=== PATIENT | male | born 1960 | race Caucasian/White ===

== ENCOUNTER → 2020-06-11 14:25 | Outpatient (BNVA) | payer OTHER, SELFPAY | PROVIDERS: Family Provider Internal Medicine; PCP Internal Medicine; Referring Provider Family Medicine; Visit Provider Dermatology | DX: L82.0 Inflamed seborrheic keratosis (principal); D22.9 Melanocytic nevi, unspecified; L82.1 Other seborrheic keratosis; D48.9 Neoplasm of uncertain behavior, unspecified; L21.9 Seborrheic dermatitis, unspecified | CPT/HCPCS: 11102; 17000; 88304; 88305; 99203; 99204 ==

== ENCOUNTER 2022-09-23 07:57 | Outpatient (CLI) | payer MEDICARE, OTHER, MEDICAID, SELFPAY ==
[2022-09-23 08:48] LABS: Basophils # 0.1 10^3/uL (0.0-0.1); Basophils % 1.4 %; Eosinophils # 0.1 10^3/uL (0.0-0.8); Eosinophils % 2.1 %; Hematocrit 32.7 % (42.0-52.0); Hemoglobin 9.5 g/dL (11.7-16.6); Lymphocytes # 1.2 10^3/uL (0.8-4.8); Lymphocytes % 23.8 %; Mean Corpuscular HGB Conc 29.1 g/dL (30.0-36.0); Mean Corpuscular Hemoglobin 24.6 pg (28.0-34.0); Mean Corpuscular Volume 84.7 fl (80-94); Mean Platelet Volume 10.3 fL (7.4-10.4); Monocytes # 0.7 10^3/uL (0.2-0.9); Monocytes % 13.6 %; Neutrophils # 2.85 10^3/uL (1.8-7.7); Neutrophils % 58.9 %; Nucleated Red Blood Cells % 0 %; Platelet Count 351 10^3/cmm (130-400); Red Blood Count 3.86 10^6/uL (4.1-5.3); Red Cell Distribution Width 14.6 % (12.1-15.1); White Blood Count 4.8 10^3/uL (4.0-10.0)
== END 2022-09-23 07:58 | disposition home or self-care (01) ==
LOC: LAB 07:58
PROVIDERS: Family Provider Internal Medicine; PCP Internal Medicine; Visit Provider Family Medicine
DX: I10 Essential (primary) hypertension (principal)
CPT/HCPCS: 85025

== ENCOUNTER 2023-02-26 21:05 | Emergency (ER) | payer MEDICARE, MEDICAID, SELFPAY ==
[2023-02-26 21:15] VITALS: BP 154/79; PULSE 86; RESP 16; TEMP 36.6; O2SAT 95; BMI 32.5
--- NOTE | 2023-02-26 21:43 | CTR_ITS ---
PROCEDURE INFORMATION: Exam: CT Head Without Contrast Exam date and time: 02/26/2023 10:05 PM Age: 62 years old Clinical indication: Injury or trauma; Fall; Blunt trauma (contusions or hematomas); Consciousness not specified; Patient HX: HX CVA; Additional info: Fall head injury TECHNIQUE: Imaging protocol: Computed tomography of the head without contrast. Radiation optimization: All CT scans at this facility use at least one of these dose optimization techniques: automated exposure control; mA and/or kV adjustment per patient size (includes targeted exams where dose is matched to clinical indication); or iterative reconstruction. REPORTING DATA: Count of CT and Cardiac NM exams in prior 12 months: This patient has received 0 known CTs and 0 known cardiac nuclear medicine studies in the 12 months prior to the current study. COMPARISON: CT head wo con* [id number] 09/10/2019 10:49 AM RADIATION DOSE METRICS: Total DLP (mGy-cm): 1268.91 FINDINGS: Brain: Moderate diffuse cortical volume loss. Stable encephalomalacia involving the left temporal, frontal, and parietal lobes as well as the left subinsular region. Encephalomalacia in the left cerebellum. Moderate hypodensities in supratentorial periventricular and subcortical white matter, consistent with microangiopathy. No intracranial hemorrhage. Cerebral ventricles: Ex vacuo dilatation of the left lateral ventricle. No hydrocephalus. Paranasal sinuses: Visualized sinuses are unremarkable. No fluid levels. Mastoid air cells: Visualized mastoid air cells are well aerated. Bones/joints: Unremarkable. No acute fracture. Soft tissues: Small contusion in the posterior parietal scalp. Vasculature: No hyperdense artery. CT/CT head wo con* [id number] IMPRESSION: 1. No acute intracranial abnormality. 2. Encephalomalacia in the left MCA territory and left cerebellum.
[2023-02-26 22:22] VITALS: PULSE 83; RESP 16; O2SAT 95
[2023-02-26 22:33] VITALS: BP 130/70; PULSE 84; RESP 16; O2SAT 95
[2023-02-26 22:46] VITALS: BP 127/63; PULSE 87; RESP 16; O2SAT 94
[2023-02-26 23:30] VITALS: BP 127/63; PULSE 87; RESP 16; TEMP 36.6; O2SAT 94
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
== END 2023-02-26 23:31 | disposition home or self-care (01) ==
PROVIDERS: Emergency Provider Emergency Medicine; PCP Family Medicine
DX: S00.01XA Abrasion of scalp, initial encounter (principal); S06.0X0A Concussion without loss of consciousness, initial encounter; W05.1XXA Fall from non-moving nonmotorized scooter, initial encounter; Y93.I9 Activity, other involving external motion; Y92.009 Unspecified place in unspecified non-institutional (private) residence as the place of occurrence of the external cause; I69.351 Hemiplegia and hemiparesis following cerebral infarction affecting right dominant side; I10 Essential (primary) hypertension; Z87.891 Personal history of nicotine dependence
CPT/HCPCS: 70450; 99284

== ENCOUNTER 2024-02-11 12:45 | Emergency (ER) | payer OTHER, SELFPAY ==
[2024-02-11 12:49] VITALS: BP 112/57; PULSE 83; RESP 16; TEMP 36.7; O2SAT 99
--- NOTE | 2024-02-11 12:58 | CTR_ITS ---
PROCEDURE INFORMATION: Exam: CT Abdomen And Pelvis Without Contrast Exam date and time: 02/11/2024 1:21 PM Age: 63 years old Clinical indication: Abdominal pain; Additional info: Flank pain TECHNIQUE: Imaging protocol: Computed tomography of the abdomen and pelvis without contrast. Radiation optimization: All CT scans at this facility use at least one of these dose optimization techniques: automated exposure control; mA and/or kV adjustment per patient size (includes targeted exams where dose is matched to clinical indication); or iterative reconstruction. COMPARISON: CT kidney stone [id number] 02/17/2017 11:33 AM RADIATION DOSE METRICS: Total DLP (mGy-cm): 1013.42 FINDINGS: Coronary arteries: Mild coronary calcifications. Diaphragm: Stable chronic elevation of the left hemidiaphragm. Liver: Normal. No mass. Gallbladder and bile ducts: Normal. No calcified stones. No ductal dilation. Pancreas: Normal. No ductal dilation. Spleen: Normal. No splenomegaly. Adrenal glands: Normal. No mass. Kidneys and ureters: There is a 1 cm obstructing proximal left ureter stone with secondary mild left hydroureteronephrosis and perinephric fat stranding. Bilateral nonobstructing renal stones measuring to 7 mm in the lower pole of the right kidney and 2 mm in the interpolar region of the left kidney. Stomach and bowel: Postsurgical changes in the stomach. Appendix: No evidence of appendicitis. Intraperitoneal space: Unremarkable. No free air. No significant fluid collection. Vasculature: Vascular calcifications. There are vascular calcifications. Pelvic phleboliths. Lymph nodes: Unremarkable. No enlarged lymph nodes. Urinary bladder: Unremarkable as visualized. Reproductive: Prostate gland calcifications. Bones/joints: Moderate degenerative disease of bilateral sacroiliac joints. Post right hip arthroplasty. Mild degenerative disease of the left hip joint. Multilevel mild degenerative disease of the lumbar spine, most pronounced at L4-L5 with posterior disc bulge causing mild thecal sac compression. Multilevel anterior osteophytes of the lower thoracic spine. Soft tissues: Unremarkable. CT/CT kidney stone [id number] IMPRESSION: A 1 cm obstructing stone in the proximal left ureter with proximal left hydroureteronephrosis.
--- NOTE | 2024-02-11 13:15 | ED_ITS ---
HPI - Abdominal Pain 2 General: Chief Complaint: Abdominal Pain Stated Complaint: urine issues Time Seen by Provider: 02/11/24 13:10 History of Present Illness: 63-year-old male patient comes in today with left flank pain. Patient has a history of renal calculi. Patient also has a medical history of CVA 8 years ago, most likely due to atrial fibrillation and hypertension. Patient does routinely take Eliquis medications for blood pressure and cholesterol. Patient's pain and blood in urine started this morning. Associated Symptoms: Reports hematuria Review of Systems 2 General: Reports: 10 or more systems reviewed and unremarkable except in HPI and below : Reports: flank pain and hematuria PFSH ED 2 PFSH: Medical History Atrial fibrillation Essential hypertension GERD (gastroesophageal reflux disease) Hyperlipidemia Kidney stones Stroke Surgical History History of knee surgery Family History Other No pertinent family history Social History Smoking and tobacco/nicotine status: former use of tobacco/nicotine Alcohol intake: current Alcohol intake frequency: 0-2 Drinks per Day Alcohol type: beer Physical Exam 2 Const: COMMON NORMALS: alert HENMT: COMMON NORMALS: normocephalic HEAD & SCALP: normocephalic Neck/C-Spine: COMMON NORMALS: full ROM Resp: COMMON NORMALS: normal respiratory effort and clear to auscultation bilaterally AUSCULTATION: clear to auscultation bilaterally Cardio: COMMON NORMALS: regular rate and regular rhythm RATE: regular rate RHYTHM: regular rhythm GI: COMMON NORMALS: Soft to palpation and non-tender PALPATION: Yes Soft to palpation : BLADDER/KIDNEY EXAM: Yes CVA tenderness on the left Back/Pelvis: GENERAL BACK: Yes CVA tenderness Extremity: COMMON NORMALS: normal to inspection Neuro: SENSORIUM/ORIENTATION: Yes alert Skin: COMMON NORMALS: turgor normal GENERAL SKIN EXAM: turgor normal Course 2 Vital Signs: Vital signs: Vital Signs Temperature 98.1 F 02/11/24 12:49 Pulse Rate 83 02/11/24 12:49 Respiratory Rate 16 02/11/24 12:49 Blood Pressure 112/57 02/11/24 12:49 Pulse Oximetry 99 02/11/24 12:49 Oxygen Delivery Me thod Room Air 02/11/24 12:49 MDM - Abdominal Pain Medical Decision Making 63-year-old male patient comes in today with complaints of left flank pain. Patient appears nontoxic. Patient has some CVA tenderness on percussion on the left side. Abdomen soft nontender. Bowel sounds are present. Lungs are clear to auscultation. Patient has generalized weakness on the left side which makes it difficult for him to walk but he can stand and pivot due to his previous stroke. Differential diagnosis includes pyelonephritis, renal calculi, urinary tract infection, gastroenteritis, diverticulitis. CT of the abdomen and pelvis noted a 1 cm occluded stone to the right upper ureter. CBC noted some anemia with a hemoglobin of 7.3, the last hemoglobin was done 2 years ago it was 9. CMP noted a mild elevation in creatinine of 1.6. Patient was medicated with Zofran and morphine with good results for pain control. Reviewed exam with patient and spouse with recommendations for follow-up or return to the ER. They reported understanding of care plan. Lab Data 02/11/24 14:41 02/11/24 14:41 Labs/Radiology: Radiology Impressions Abdomen/Pelvis CT 02/11/24 12:58 IMPRESSION: A 1 cm obstructing stone in the proximal left ureter with proximal left hydroureteronephrosis. Laboratory Results WBC 7.58 10^3/uL (3.29-11.43) 02/11/24 14:41 RBC 3.27 10^6/uL (3.85-5.65) L 02/11/24 14:41 Hgb 7.30 g/dL (11.27-16.99) L 02/11/24 14:41 Hct 29.5 % (37-53) L 02/11/24 14:41 MCV 90.2 fl (82-101) 02/11/24 14:41 MCH 22.3 pg (27-33) L 02/11/24 14:41 MCHC 24.7 g/dL (30-55) L 02/11/24 14:41 RDW 20.3 % (12.1-15.1) H 02/11/24 14:41 Plt Count 364 10^3/cmm (157-399) 02/11/24 14:41 MPV 9.6 fL (7.4-10.4) 02/11/24 14:41 Neut % (Auto) 79.2 % 02/11/24 14:41 Lymph % (Auto) 7.8 % 02/11/24 14:41 [place] % (Auto) 10.3 % 02/11/24 14:41 Eos % (Auto) 1.2 % 02/11/24 14:41 Baso % (Auto) 1.1 % 02/11/24 14:41 Neut # (Auto) 6.01 10^3/uL (1.8-7.7) 02/11/24 14:41 Lymph # (Auto) 0.6 10^3/uL (0.8-4.8) L 02/11/24 14:41 [place] # (Auto) 0.8 10^3/uL (0.2-0.9) 02/11/24 14:41 Eos # (Auto) 0.1 10^3/uL (0.0-0.8) 02/11/24 14:41 Baso # (Auto) 0.1 10^3/uL (0.0-0.1) 02/11/24 14:41 Nucleated RBC % (auto) 0 % 02/11/24 14:41 Nucleated RBCs # 0.0 /100WBC 02/11/24 14:41 Sodium 137 mmol/L (136-145) 02/11/24 14:41 Potassium 4.7 mmol/L (3.5-5.1) 02/11/24 14:41 Chloride 106 mmol/L (98-107) 02/11/24 14:41 Carbon Dioxide 22 mmol/L (22-29) 02/11/24 14:41 Anion Gap 13.7 (5-19) 02/11/24 14:41 BUN 25 mg/dL (8-23) H 02/11/24 14:41 Creatinine 1.6 mg/dL (0.7-1.2) H 02/11/24 14:41 GFR Calculation 43.7 mL/min (90-130) L 02/11/24 14:41 Glucose 118 mg/dL (65-115) H 02/11/24 14:41 Calculated Osmolality 289 mOsm/kg (285-295) 02/11/24 14:41 Calcium 8.2 mg/dL (8.5-10.5) L 02/11/24 14:41 Total Bilirubin 0.4 mg/dL (0.15-1.2) 02/11/24 14:41 AST 15 U/L (0-40) 02/11/24 14:41 ALT 7 U/L (0-41) 02/11/24 14:41 Alkaline Phosphatase 106 U/L (40-130) 02/11/24 14:41 Total Protein 6.2 g/dL (6.6-8.7) L 02/11/24 14:41 Albumin 3.6 g/dL (3.5-5.2) 02/11/24 14:41 Globulin 2.6 g/dL (1.3-4.6) 02/11/24 14:41 Urine Color Yellow (Yellow) 02/11/24 14:37 Urine Appearance Hazy (CLEAR) A 02/11/24 14:37 Urine pH 5 (5-7) 02/11/24 14:37 Ur Specific [place] 1.020 (1.005-1.030) 02/11/24 14:37 Urine Protein Trace (Negative) 02/11/24 14:37 Urine Glucose (UA) Norm (Normal) 02/11/24 14:37 Urine Ketones Negative (Negative) 02/11/24 14:37 Urine Blood 3+ (Negative) H 02/11/24 14:37 Urine Nitrate Positive (Negative) H 02/11/24 14:37 Urine Bilirubin 1+ (Negative) H 02/11/24 14:37 Urine Urobilinogen 1 mg/dL (Negative) H 02/11/24 14:37 Ur Leukocyte Esterase Trace (Negative) H 02/11/24 14:37 Urine RBC 25-40 /hpf (0-2) H 02/11/24 14:37 Urine WBC 5-10 /hpf (0-5) H 02/11/24 14:37 Ur Squamous Epith Cells None /hpf (0-5) 02/11/24 14:37 Amorphous Sediment Not Reportable 02/11/24 14:37 Urine Bacteria 2+ /hpf (NONE) H 02/11/24 14:37 All radiology interpretation(s) finalized by discharge Discharge Plan Discharge Patient Disposition: Home Clinical Impression: Left ureteral calculus Condition: Stable Prescriptions: New hydrocodone-acetaminophen 5-325 mg tablet 1 tab PO Q6H PRN (Reason: pain) Qty: 14 0RF ondansetron 4 mg tablet,disintegrating 4 mg PO Q8H PRN (Reason: nausea and vomiting) Qty: 10 0RF No Action Eliquis 5 mg tablet 5 mg PO BID multivitamin [Daily Multi-Vitamin] Tablet 1 tab PO DAILY atorvastatin 40 mg tablet 20 mg PO BEDTIME diltiazem HCl 180 mg capsule,extended release 24hr 180 mg PO QAM carvedilol 12.5 mg Tablet 6.25 mg PO BID iron 325 mg (65 mg iron) Tablet 325 mg PO BID ketoconazole 2 % shampoo See Rx Instructions .ROUTE .COMPLEX Rx Instructions: topically as needed as directed albuterol sulfate 2.5 mg /3 mL (0.083 %) Solution For Nebulization 2.5 mg INHALATION Q6H PRN (Reason: Shortness Of Breath) Fish Oil Concentrate 1,000 mg Capsule 1,000 mg PO BID folic acid 400 mcg Tablet 400 mcg PO DAILY guaifenesin 100 mg/5 mL Liquid 200 mg PO QID PRN (Reason: Cough) Flomax 0.4 mg Capsule 0.4 mg PO BEDTIME Protonix 40 mg Tablet,Delayed Release (Dr/Ec) 40 mg PO QAM lisinopril 10 mg Tablet 10 mg PO QAM Lasix 20 mg Tablet 20 mg PO DAILY PRN (Reason: Edema) metformin 500 mg Tablet Extended Release 24 Hr 500 mg PO BID Claritin 10 mg Tablet 10 mg PO DAILY Flexeril 5 mg Tablet 5 mg PO TID PRN (Reason: Muscle Spasm) ketoconazole 2 % cream See Rx Instructions .ROUTE .COMPLEX Rx Instructions: Apply twice daily to red scaly areas on face x4 weeks then as needed for flares Discharge Orders: Discharge ED (Routine); Ordered 02/11/24 Ordered By: Alexandr Valencia Referrals: Emigdio St DO [Primary Care Provider] - Discharge Diet: Usual diet Discharge Activity: Increase activity as tolerated Patient Instructions: Kidney Stones (ED) Activity Restrictions/Additional Instructions: Follow-up with urologist in the morning for further treatment and evaluation. Return to ER for difficulty holding fluids down, uncontrolled pain, or fever greater than 100.4. Coding Level of Care Code ED Applied Behavior Specialist for Renata De La Cruz
[2024-02-11] MEDS: morphine 4 mg/mL SDV 1 mL IM (14:10)
[2024-02-11] MEDS: ondansetron 4 MG Tablet PO (14:10)
[2024-02-11 15:00] LABS: Basophils # 0.1 10^3/uL (0.0-0.1); Basophils % 1.1 %; Eosinophils # 0.1 10^3/uL (0.0-0.8); Eosinophils % 1.2 %; Hematocrit 29.5 % (37-53); Lymphocytes # 0.6 10^3/uL (0.8-4.8); Lymphocytes % 7.8 %; Mean Corpuscular HGB Conc 24.7 g/dL (30-55); Mean Corpuscular Hemoglobin 22.3 pg (27-33); Mean Corpuscular Volume 90.2 fl (82-101); Mean Platelet Volume 9.6 fL (7.4-10.4); Monocytes # 0.8 10^3/uL (0.2-0.9); Monocytes % 10.3 %; Neutrophils # 6.01 10^3/uL (1.8-7.7); Neutrophils % 79.2 %; Nucleated Red Blood Cells % 0 %; Platelet Count 364 10^3/cmm (157-399); Red Blood Count 3.27 10^6/uL (3.85-5.65); Red Cell Distribution Width 20.3 % (12.1-15.1); White Blood Count 7.58 10^3/uL (3.29-11.43)
[2024-02-11 15:14] LABS: Glucose Urine UA Norm (Normal); Protein Urine Trace (Negative); Urine Appearance Hazy (CLEAR); Urine Color Yellow (Yellow); pH Urine 5 (5-7)
[2024-02-11 15:15] LABS: Add Urine Culture? Yes; Add Urine Microscopic? YES; Bacteria Urine 2+ /hpf; Bilirubin Urine 1+ (Negative); Blood Urine 3+ (Negative); Ketones Urine Negative (Negative); Leukocyte Esterase Urine Trace (Negative); Nitrate Urine Positive (Negative); RBC Urine 25-40 /hpf (0-2); Urobilinogen Urine 1 mg/dL (Negative)
[2024-02-11 15:26] LABS: Alanine Aminotransferase 7 U/L (0-41); Albumin Level 3.6 g/dL (3.5-5.2); Alkaline Phosphatase 106 U/L (40-130); Aspartate Amino Transferase 15 U/L (0-40); Blood Urea Nitrogen 25 mg/dL (8-23); Calcium 8.2 mg/dL (8.5-10.5); Carbon Dioxide 22 mmol/L (22-29); Chloride 106 mmol/L (98-107); Globulin 2.6 g/dL (1.3-4.6); Glomerular Filtration Rate 43.7 mL/min (90-130); Glucose 118 mg/dL (65-115); Osmolality Calculated 289 mOsm/kg (285-295); Sodium 137 mmol/L (136-145); Total Bilirubin 0.4 mg/dL (0.15-1.2); Total Protein 6.2 g/dL (6.6-8.7)
[2024-02-11 15:46] LABS: Anion Gap 13.7 (5-19); Creatinine Clr Calc Pharmacy 54.9174; Potassium 4.7 mmol/L (3.5-5.1)
[2024-02-11] MEDS: cefTRIAXone 1,000 MG in water for injection-sterile 2.1 ML 2.10000000000000009 MG IM (15:47)
[2024-02-11 15:59] VITALS: BP 115/62; PULSE 89; RESP 15; TEMP 36.7; O2SAT 98
== END 2024-02-11 16:01 | disposition home or self-care (01) ==
PROVIDERS: Family Medicine; Emergency Provider Nurse Practitioner Family; PCP Emergency Medicine Emergency Medical Services
DX: N13.2 Hydronephrosis with renal and ureteral calculous obstruction (principal); Z79.01 Long term (current) use of anticoagulants; Z79.84 Long term (current) use of oral hypoglycemic drugs; Z87.891 Personal history of nicotine dependence; I10 Essential (primary) hypertension; E78.5 Hyperlipidemia, unspecified; Z87.442 Personal history of urinary calculi; Z86.73 Personal history of transient ischemic attack (TIA), and cerebral infarction without residual deficits
CPT/HCPCS: 36415; 51701; 74176; 80053; 81001; 85025; 87077; 87086; 87186; 96372; 99284; J0696; J2270; Q0162